=== PATIENT | female | born 1990 | race Caucasian/White ===

== ENCOUNTER 2017-07-30 13:09 | Outpatient (CLI) | payer OTHER ==
[~2017-07-30] VITALS: Ht 152.4 cm; Wt 93.2 kg
[2017-07-30] MEDS ORDERED: PNV91TAB6 PO (13:34)
[2017-07-30] MEDS ORDERED: FER325 PO (13:34)
[2017-07-30 13:35] VITALS: BP 116/69; PULSE 120; RESP 18; Ht 152.4 cm; Wt 93.2 kg
--- NOTE | 2017-07-30 14:41 | RADRPT ---
PROCEDURE: Obstetrical ultrasound for biophysical profile CLINICAL INDICATION: Biophysical profile. . TECHNIQUE: Obstetrical ultrasound of the uterus for biophysical profile. Transabdominal views are obtained. COMPARISON: 03/31/2017 FINDINGS: Single intrauterine gestation. Presentation: Cephalic. Placenta: Anterior. No evidence of placental abruption. No evidence of placenta previa. breathing movement = 2/2 tone = 2/2 motion = 2/2 AUTUMN = 2/2 AUTUMN = 10.1 cm heart rate: 161 beats per minute IMPRESSION: Single intrauterine gestation. Biophysical profile 04/07 RPTAT: AADD .Ildefonso Yañez MD, MD Date Time Electronically viewed and signed by .Ildefonso Yañez MD, on 07/30/2017 14:40 .B/
--- NOTE | 2017-07-30 15:37 | TRIAGE ---
OB Triage Datetime Report Generated by CPN: 07/30/2017 15:36 Datetime: 07/30/2017 14:30 Stage of : OB Triage Maternal Assessment Level of Consciousness: Fully Conscious Labor Evaluation Frequency: 2UC/HR Monitor Mode: External Duration (sec)2399: 90-140 Quality: Mild Resting Tone [place]: Relaxed Heart Rate FHR Baseline Rate: 135 Monitor Mode: External US Variability: Moderate 6-25 bpm Accelerations: 15X15 Decelerations: None Category: Category I Pain Assessment Pain Scale: 0 Pain Goal: 3 Vaginal Exam Membrane Status: Intact Vaginal Bleeding: None Datetime: 07/30/2017 13:32 Assessment Type: Triage Maternal Assessment Level of Consciousness: Fully Conscious DTR's/Clonus: DTRs 2+; No Clonus Headache: Denies Blurred Vision: No Respiratory Effort: Unlabored; Regular Rhythm; Equal Expansion Breath Sounds, Left: Clear and Equal Breath Sounds, Right: Clear and Equal Nausea/Vomiting: Denies RUQ Epigastric Pain: Denies Lower Extremities Edema: None Degree: None Upper Extremities Edema: None Degree: None Facial Edema: None Fall Risk Assessment History of Falling: (0) No Secondary Diagnosis: (0) No Ambulatory Aid: (0) Bedrest/Nurse Assist IV Therapy: (0) No Gait: (0) Normal/Bedrest/Immobile Mental Status: (0) Oriented to Own Ability Fall Score: 0 Fall Risk Score Definition: No Risk: No action required Datetime: 07/30/2017 13:30 Time of Arrival: 07/30/2017 13:03 EGA: 37.4 Arrived By: Ambulatory Arrived From: Home Chief Complaint: PT SENT FROM OFFICE FOR C/O DFM Movement: Decreased Contractions: Denies/Absent Rupture of Membranes: Denies Vaginal Bleeding: None Vaginal Discharge: Denies Recent Sexual Intercouse: Denies Abdominal Trauma: Not Applicable Patient Complaints: None Time Provider Notified: 07/30/2017 14:44 Provider Notified: ABUSLEME Initial Plan: NST/BPP Datetime: 07/30/2017 13:29 Monitor Mode: External Monitor Mode: External US
--- NOTE | 2017-07-30 19:46 | CONS ---
Date/Time of Note Date/Time of Note DATE: 07/30/17 TIME: 19:40 Consultation Date/Type/Reason Admit Date/Time July 30, 2017 OB triage consult This patient is a 26 years old 2 para 1 living 1 who delivered spontaneous vaginal estimated date of confinement is August 16, 2017 which makes her 37 weeks and 4 days today. She came to the triage due to decreased movement. On examination she is a well-developed well-nourished lady near-term her body weight was 93.2 pounds. Her general vital signs appears to be within normal limits with the blood pressure of 116/69, pulse rate of 120, respiration 18, temperature 98.4, and the oxygen saturation at room temperature was 98. Constitutional: No chills, No diaphoresis, No disoriented, No febrile, No improved, No no complaints, No other, No poor po, No requiring IVF, No requiring O2 Eyes: No discharge, No no complaints, No other, No pain, No redness, No visual change ENT: No bleeding, No congestion, No discharge, No dysphagia, No no complaints, No other, No pain, No sore throat Respiratory: No cough, No no complaints, No other, No pain, No pleuritic pain, No shortness of breath, No sputum, No wheezing Cardiovascular: No chest pain, No edema, No lightheadedness, No no complaints, No orthopenea, No other, No palpitations, No paroxysmal nocturnal dyspnea Gastrointestinal: No blood, No constipation, No decreased appetite, No diarrhea , No flatus, No nausea, No no complaints, No other, No pain, No passing stool, No vomiting Genitourinary: other (Due to lack of any contractions pelvic examination was not performed), No bleeding, No discharge, No dysuria, No flank pain, No hematuria, No no complaints Musculoskeletal: No back pain, No bone/joint pain, No neck pain, No no complaints, No other, No restricted range of motion, No swelling Skin: No bruising, No erythema, No laceration, No no complaints, No other, No pruritis, No rash, No skin lesions Neurologic: other (Knee-jerk reflex was normal), No confusion, No dizziness, No focal-weakness, No headache, No no complaints , No seizure, No syncope Endocrine: No dry skin, No no complaints, No other, No polydypsia, No polyuria , No temp intolerance Additional Comments Her nonstress test was reactive with fairly good variability occasional acceleration no sign of decelerations On ultrasound study report was single live intrauterine gestation in cephalic presentation with the placenta anterior with no evidence of abruption or previa her biophysical was reported 04/07 and the AUTUMN was 10.1 cm Recommendation to do a kick count and to be followed in 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
== END 2017-07-30 15:47 | disposition home or self-care (01) ==
LOC: OBT 13:09 → L-D 13:09 → OBT 15:47
PROVIDERS: ATTEND Obstetrics & Gynecology
DX: O36.8130 Decreased fetal movements, third trimester, not applicable or unspecified (principal); Z3A.37 37 weeks gestation of pregnancy
CPT/HCPCS: 76818; Z7500; G0463

== ENCOUNTER 2017-08-08 19:39 | Outpatient (CLI) | payer OTHER ==
[~2017-08-08] VITALS: Ht 154.9 cm; Wt 94.4 kg
[~2017-08-08 19:39] MED LIST: FER325 PO; PNV91TAB6 PO
[2017-08-08 20:18] VITALS: BP 127/72; PULSE 102; RESP 18; Ht 154.9 cm; Wt 94.4 kg
[2017-08-08 20:37] LABS: ADD UMIC YES; UR ASCORBIC ACID 40 mg/dL (NEGATIVE); UR BACTERIA FEW /HPF (NONE SEEN); UR BILIRUBIN (Dip) NEGATIVE (NEGATIVE); UR BLOOD (Dip) NEGATIVE (NEGATIVE); UR CLARITY SLIGHTLY CLOUDY (CLEAR); UR COLOR YELLOW (YELLOW); UR GLUCOSE (Dip) NEGATIVE (NEGATIVE); UR KETONES (Dip) NEGATIVE (NEGATIVE); UR LEUKOCYTE ESTERASE (Dip) NEGATIVE Leu/ul (NEGATIVE); UR MUCUS FEW /HPF (NONE SEEN); UR NITRITE (Dip) NEGATIVE (NEGATIVE); UR RBC 1 /HPF (0-5); UR SPECIFIC GRAVITY (Dip) 1.028 (1.003-1.030); UR SQUAMOUS EPITHELIAL CELL FEW /HPF (FEW); UR TOTAL PROTEIN (Dip) 1+ mg/dl (NEGATIVE); UR UROBILINOGEN (Dip) 1+ mg/dL (NEGATIVE)
--- NOTE | 2017-08-08 22:44 | RADRPT ---
PROCEDURE: Biophysical profile. CLINICAL INDICATION: Pelvic pain. TECHNIQUE: Multiple sonographic images of the pelvis were obtained with transabdominal technique. COMPARISON: 07/30/2017. FINDINGS: There is a single living intrauterine gestation with the fetus in a vertex position. The placenta i s anterior and right lateral in location grade 1 to 2. heart tones of 144 beats per minute are identified. There is normal amniotic fluid volume with an AUTUMN of 9.5 cm. breathing movements = 2 Gross body movements = 2 tone = 2 Qualitative AFV = 2 IMPRESSION: Biophysical profile 8 out of 8. .Michael James MD, MD Date Time Electronically viewed and signed by .Michael James MD, MD on 08/08/2017 22:44 .T/
--- NOTE | 2017-08-09 05:00 | TRIAGE ---
OB Triage Datetime Report Generated by CPN: 08/09/2017 05:00 Datetime: 08/08/2017 20:25 Stage of : OB Triage Datetime: 08/08/2017 20:13 Vaginal Exam Dilatation (cms): 0.0 Effacement (%): 50 Station: -3 Exam By: Starr Hernandez, RN Vaginal Bleeding: None Cervix, Consistency: Firm Cervix, Position: Posterior Datetime: 08/08/2017 20:10 Pool: Negative Nitrazine: Negative Datetime: 08/08/2017 19:58 Assessment Type: Triage Maternal Assessment Level of Consciousness: Fully Conscious DTR's/Clonus: DTRs 2+; No Clonus Headache: Denies Blurred Vision: No Respiratory Effort: Unlabored; Regular Rhythm; Equal Expansion Breath Sounds, Left: Clear and Equal Breath Sounds, Right: Clear and Equal Nausea/Vomiting: Denies RUQ Epigastric Pain: Denies Lower Extremities Edema: None Degree: None Upper Extremities Edema: None Degree: None Facial Edema: None Fall Risk Assessment History of Falling: (0) No Secondary Diagnosis: (0) No Ambulatory Aid: (0) Bedrest/Nurse Assist IV Therapy: (0) No Gait: (0) Normal/Bedrest/Immobile Mental Status: (0) Oriented to Own Ability Fall Score: 0 Fall Risk Score Definition: No Risk: No action required Datetime: 08/08/2017 19:42 Time of Arrival: 08/08/2017 19:35 EGA: 38.6 Arrived By: Ambulatory Arrived From: Home Chief Complaint: LOF since 1800 (Annotations: Data stored by CPN on behalf of user) Movement: Present Contractions: Denies/Absent Rupture of Membranes: Unsure Vaginal Bleeding: None Vaginal Discharge: Denies Recent Sexual Intercouse: Denies Abdominal Trauma: Not Applicable Patient Complaints: Other Time Provider Notified: 08/08/2017 20:25 Provider Notified: Dr Mcclellan Initial Plan: EFM X2, Sterile spec, nitrazine, ROM+, BPP/AUTUMN Datetime: 07/30/2017 13:32 Fall Score: 0 Fall Risk Score Definition: No Risk: No action required Datetime: 07/30/2017 13:30 EGA: 37.4
--- NOTE | 2017-08-17 11:16 | PN ---
Triage Information Date/Time Reason for visit: SROM Weeks of Gestation Patient is 2 para 1 at 38 weeks and 6 days of gestation with estimated date of delivery September 16, 2017 who presented with rule out rupture of membrane no vaginal bleeding, no contractions, positive movement /Para Diabetes: none Hypertention: none Additional information VE : closed Objective Heart Rate: 140's Heart Rate Comments heart rate tracing category 1 Contractions: None Results/Medications Imaging Results PROCEDURE: Biophysical profile. CLINICAL INDICATION: Pelvic pain. TECHNIQUE: Multiple sonographic images of the pelvis were obtained with transabdominal technique. COMPARISON: 07/30/2017. FINDINGS: There is a single living intrauterine gestation with the fetus in a vertex position. The placenta is anterior and right lateral in location grade 1 to 2. heart tones of 144 beats per minute are identified. There is normal amniotic fluid volume with an AUTUMN of 9.5 cm. breathing movements = 2 Gross body movements = 2 tone = 2 Qualitative AFV = 2 IMPRESSION: Biophysical profile 8 out of 8. .Michael James MD, MD Date Time Electronically viewed and signed by .Michael James MD, MD on 08/08/2017 22:44 .T/ CC: CATHY MONDRAGON MD Disposition: Discharge Assessment/Plan Patient was discharged home kick counts were reviewed with the patient She was instructed to follow-up with her own PROOFREADER in 2 days RIANNA MONCADA MD Aug 17, 2017 11:16
== END 2017-08-08 23:14 | disposition home or self-care (01) ==
LOC: OBT 19:39 → L-D 19:40 → OBT 23:14
PROVIDERS: ATTEND Obstetrics & Gynecology
DX: O42.92 Full-term premature rupture of membranes, unspecified as to length of time between rupture and onset of labor (principal); Z3A.38 38 weeks gestation of pregnancy
CPT/HCPCS: 76818; 81001; 84112; Z7500; G0463

== ENCOUNTER 2017-08-16 06:58 | Inpatient (IN) | payer OTHER ==
--- NOTE | 2017-08-08 23:36 | PN ---
Triage Information Date/Time Reason for visit: Rule out rupture of membranes Weeks of Gestation Patient is a 26-year-old 2 para 1 at 38 weeks and 6 days of gestation with estimated date of delivery September 16, 2017 She presents with chief complaint of leaking fluid, no contractions , no vaginal bleeding , positive movement /Para 2 para 1 Diabetes: none Hypertention: none Objective Heart Rate: 140's Heart Rate Comments heart rate tracing category 1 Contractions: None Results/Medications Results 24 hrs rupture of membranes negative Imaging Results PROCEDURE: Biophysical profile. CLINICAL INDICATION: Pelvic pain. TECHNIQUE: Multiple sonographic images of the pelvis were obtained with transabdominal technique. COMPARISON: 07/30/2017. FINDINGS: There is a single living intrauterine gestation with the fetus in a vertex position. The placenta is anterior and right lateral in location grade 1 to 2. heart tones of 144 beats per minute are identified. There is normal amniotic fluid volume with an AUTUMN of 9.5 cm. breathing movements = 2 Gross body movements = 2 tone = 2 Qualitative AFV = 2 IMPRESSION: Biophysical profile 8 out of 8. .Michael James MD, Date Time Electronically viewed and signed by .Michael James MD, MD on 08/08/2017 22:44 .T/ CC: CATHY MONDRAGON MD Disposition: Discharge Assessment/Plan Biophysical profile 8 out of 8 rupture of membranes negative Patient was discharged home Patient was given kick count instructions Patient was instructed to follow-up with her own ENVIRONMENTAL SERVICES SPECIALIST in 2-3 days RIANNA MONCADA MD Aug 08, 2017 23:36
[~2017-08-16] VITALS: Ht 152.4 cm; Wt 94.9 kg
[2017-08-16 07:06] VITALS: Ht 152.4 cm; Wt 94.9 kg
[2017-08-16 07:11] VITALS: BP 120/58; PULSE 90; RESP 19
--- NOTE | 2017-08-16 07:53 | TRIAGE ---
OB Triage Datetime Report Generated by CPN: 08/16/2017 07:53 Datetime: 08/16/2017 07:52 Stage of : OB Triage Maternal Assessment Level of Consciousness: Fully Conscious DTR's/Clonus: DTRs 1+ Headache: Denies Breath Sounds, Left: Clear and Equal Breath Sounds, Right: Clear and Equal Nausea/Vomiting: Denies RUQ Epigastric Pain: Denies Labor Evaluation Frequency: 2-4 Monitor Mode: External Duration (sec)2399: 40-60 Quality: Mild Pattern: Normal: <= 5 Contractions in 10 Minutes Resting Tone [place]: Relaxed Heart Rate FHR Baseline Rate: 140 Monitor Mode: External US Variability: Moderate 6-25 bpm Accelerations: 15X15 Decelerations: None Category: Category I Pain Assessment Pain Scale: 0 Pain Presence: None/Denies Pain Type: N/A Pain Goal: 3 Membrane Status: Intact Datetime: 08/16/2017 07:25 Maternal Assessment Level of Consciousness: Fully Conscious DTR's/Clonus: DTRs 1+ Headache: Denies Blurred Vision: No Respiratory Effort: Unlabored Breath Sounds, Left: Clear and Equal Breath Sounds, Right: Clear and Equal Nausea/Vomiting: Denies RUQ Epigastric Pain: Denies Facial Edema: None Labor Evaluation Frequency: 2-4 Monitor Mode: External Duration (sec)2399: 40-60 Quality: Mild Pattern: Normal: <= 5 Contractions in 10 Minutes Resting Tone [place]: Relaxed Heart Rate FHR Baseline Rate: 140 Monitor Mode: External US Variability: Moderate 6-25 bpm Accelerations: 15X15 Decelerations: None Category: Category I Pain Assessment Pain Scale: 0 Pain Presence: None/Denies Pain Type: N/A Pain Goal: 3 Membrane Status: Intact Datetime: 08/16/2017 07:08 Time of Arrival: 08/16/2017 06:50 EGA: 40.0 Arrived By: Ambulatory Arrived From: Home Chief Complaint: CAME IN FOR IOL, NOT IN SCHEDULE Movement: Present Rupture of Membranes: Denies Vaginal Discharge: Denies Provider Notified: ABUSELEME/FOROOHAR Initial Plan: MONITOR AND VE Vaginal Exam Dilatation (cms): 2.5 Effacement (%): 80 Station: -4 Exam By: MARIO ALBERTO SIMMONS Vaginal Bleeding: None Cervix, Consistency: Soft Cervix, Position: Midposition Presentation 'A': Unable to Assess Datetime: 08/08/2017 22:00 Stage of : OB Triage Labor Evaluation Frequency: Occasional Monitor Mode: External Duration (sec)2399: 40-50 Quality: Mild Pattern: Normal: <= 5 Contractions in 10 Minutes Resting Tone [place]: Relaxed Heart Rate FHR Baseline Rate: 135 Monitor Mode: External US FHR Baseline Changes: No Baseline Change Variability: Moderate 6-25 bpm Accelerations: 15X15 Decelerations: None Category: Category I Datetime: 08/08/2017 21:00 Stage of : OB Triage Labor Evaluation Frequency: Occasional Monitor Mode: External Duration (sec)2399: 40-50 Quality: Mild Pattern: Normal: <= 5 Contractions in 10 Minutes Resting Tone [place]: Relaxed Contraction Comments: Pt denies UC's Heart Rate FHR Baseline Rate: 140 Monitor Mode: External US FHR Baseline Changes: No Baseline Change Variability: Moderate 6-25 bpm Accelerations: 15X15 Decelerations: None Category: Category I Datetime: 08/08/2017 19:58 Fall Risk Assessment Fall Score: 0 Fall Risk Score Definition: No Risk: No action required Datetime: 08/08/2017 19:42 EGA: 38.6 Datetime: 07/30/2017 13:32 Fall Risk Assessment Fall Score: 0 Fall Risk Score Definition: No Risk: No action required Datetime: 07/30/2017 13:30 EGA: 37.4
[2017-08-16] MEDS ORDERED: CARBOPROST 250 MCG INJ IM PRN (08:00)
[2017-08-16] MEDS ORDERED: AMPICILLIN 2 GM/NS (PMX) 100 ML IV ONE (08:00)
[2017-08-16] MEDS ORDERED: METHYLERGONOVINE 0.2 MG INJ IM PRN (08:00)
[2017-08-16] MEDS ORDERED: MISOPROSTOL 200 MCG TAB PR PRN (08:00)
[2017-08-16] MEDS ORDERED: LIDOCAINE 1% (MPF) 30 ML INJ INJ PRN (08:00)
[2017-08-16] MEDS ORDERED: HYDROCODONE/APAP (5/325) TAB PO PRN (08:00)
[2017-08-16] MEDS ORDERED: OXYTOCIN 30 UNITS/LR 500 ML IV PRN (08:00)
[2017-08-16] MEDS ORDERED: OXYTOCIN 30 UNITS/LR 500 ML IV SCH ×2 (08:00)
--- NOTE | 2017-08-16 08:06 | TRIAGE ---
OB Triage Datetime Report Generated by CPN: 08/16/2017 08:06 Datetime: 08/16/2017 07:08 Time Provider Notified: 08/16/2017 07:26
[2017-08-16] MEDS: LACTATED RINGER'S 1,000 ML IV SCH ×3 (08:53→22:15)
--- NOTE | 2017-08-16 08:56 | RADRPT ---
PROCEDURE: Obstetrical ultrasound. CLINICAL INDICATION: , evaluation. Pelvic pain. TECHNIQUE: Transabdominal sonographic images of the uterus obtained after first trimester , greater than 14 weeks gestation. Single intrauterine gestation present. COMPARISON: US PELVIS 08/08/2017 FINDINGS: Single intrauterine gestation. There is a cephalic presentation. Measurements were made in order to determine age. The results are as follows: BPD = 37 weeks 3 day(s) HC = 38 weeks 2 day(s) AC = 40 weeks 3 day(s) FL = 38 weeks 0 day(s) AUTUMN = not measured Heart rate = 126 beats per minute The placenta is anterior - left lateral.. There is no evidence for an abruption or placenta previa. Ovaries are not visualized. IMPRESSION: Single intrauterine gestation of approximately 38 weeks 4 days by ultrasound criteria. [place] estimated weight = 3742 g; 60 percentile for gestational age of 40 weeks 0 days. RPTAT: AADD .Ildefonso Yañez MD, MD Date Time Electronically viewed and signed by .Ildefonso Yañez MD, on 08/16/2017 08:56 .B/
[2017-08-16 08:59] LABS: BASOPHILS % 0.2 % (0.0-2.0); EOSINOPHILS # 0.2 10^3/ul (0.0-0.5); EOSINOPHILS % 1.1 % (0.0-7.0); HEMATOCRIT 33.7 % (37.0-47.0); HEMOGLOBIN 10.7 g/dl (12.0-16.0); LYMPHOCYTES # 3.4 10^3/ul (0.8-2.9); LYMPHOCYTES % 21.2 % (15.0-51.0); MEAN CORPUSCULAR HEMOGLOBIN 26.1 pg (29.0-33.0); MEAN CORPUSCULAR HGB CONC 31.8 g/dl (32.0-37.0); MEAN CORPUSCULAR VOLUME 82.2 fl (82.0-101.0); MEAN PLATELET VOLUME 10.7 fl (7.4-10.4); MONOCYTE # 0.6 10^3/ul (0.3-0.9); MONOCYTES % 3.6 % (0.0-11.0); NEUTROPHIL # 11.9 10^3/ul (1.6-7.5); NEUTROPHILS % 73.3 % (39.0-77.0); PLATELET COUNT 318 10^3/UL (140-415); RED CELL DISTRIBUTION WIDTH 14.6 % (11.5-14.5); WHITE BLOOD COUNT 16.2 10^3/ul (4.8-10.8)
[2017-08-16] MEDS ORDERED: BUTORPHANOL 2 MG INJ IV PRN (09:00)
[2017-08-16] MEDS ORDERED: IBUPROFEN 600 MG TAB PO PRN (09:00)
[2017-08-16 09:36] LABS: INR 0.88; PT RATIO 0.9
[2017-08-16 09:37] LABS: PARTIAL THROMBOPLASTIN TIME 32.5 Sec (25.0-35.0)
[2017-08-16] MEDS: AMPICILLIN 1 GM/NS (PMX) 50 ML IV SCH ×3 (12:35→20:47)
--- NOTE | 2017-08-16 21:43 | HP ---
Date/Time of Note Date/Time of Note DATE: 08/16/17 TIME: 21:35 OB - History Hx of Present Last Menstrual Period: Nov 12, 2016 Estimated Due Date: Aug 16, 2017 : 2 Para: 1 Care: Good Care Ultrasounds: Normal mid trimester US Obstetrical Complications: None Medical Complications: None Past Family/Social History * Past Medical, Surgical, Family and Obstetric Histories reviewed from chart. Blood Type: A+ Rubella: immune RPR/VDRL: Negative GBS Status: Positive HBsAG: Negative OB Admission Exam Vital Signs Vital Signs Vital Signs Date Time Temp Pulse Resp B/P Pulse Ox O2 Delivery O2 Flow Rate FiO2 08/16/17 07:11 98.8 90 19 120/58 99 Room Air Physical Exam HEENT: WNL Heart: Rhythm Normal Lungs: Clear, Equal Abdomen: WNL Extremities: Normal Reflexes: Normal Cervical Dilatation: 3cm Effacement: 75% Station: Ballotable Membranes: Intact Heart Rate: 130's Accelerations: Accelerations Present Varibility: Moderate Contractions on Admission: 6-10 Minutes Apart Intensity: Mild Last 72 hours Lab Results CBC & BMP 08/16/17 08:00 OB Assessment/Plan Plan: Expectant Management TREVOR WILSON MD Aug 16, 2017 21:43
[2017-08-17] MEDS: AMPICILLIN 1 GM/NS (PMX) 50 ML IV SCH ×6 (00:32→20:01)
[2017-08-17] MEDS: OXYTOCIN 30 UNITS/LR 500 ML IV SCH ×2 (04:19→04:51)
[2017-08-17] MEDS: LACTATED RINGER'S 1,000 ML IV SCH ×2 (10:14→12:15)
[2017-08-17] MEDS ORDERED: FENTAnyl 2MCG/ML-ROPIV 0.2% 100 ML ONE (11:49)
[2017-08-17] MEDS ORDERED: ONDANSETRON 4 MG INJ ONE (12:23)
[2017-08-17] MEDS ORDERED: ONDANSETRON 4 MG INJ IV STA (12:44)
[2017-08-17] MEDS ORDERED: FENTAnyl 2MCG/ML-ROPIV 0.2% 100 ML BAG EPI SCH (13:00)
[2017-08-17] MEDS ORDERED: NALOXONE (0.4 MG/ML) INJ IV PRN (13:00)
[2017-08-17] MEDS ORDERED: DIPHENHYDRAMINE 50 MG INJ IV PRN (13:00)
[2017-08-17] MEDS ORDERED: ONDANSETRON 4 MG INJ IV PRN ×2 (13:00→22:30)
[2017-08-17] MEDS ORDERED: OXYTOCIN 30 UNITS/LR 500 ML IV SCH (22:18)
--- NOTE | 2017-08-17 22:28 | LDN ---
Date/Time of Note Date/Time of Note DATE: 08/17/17 TIME: 22:25 Delivery Summary 26 years old female 2 para 1 Admitted for induction at 40 weeks of Prolonged labor Spontaneous vaginal delivery baby girl Apgars 9 NICU team present Perineal abrasion sutured under epidural anesthesia No complications Weeks of Gestation 40 Placenta Delivered: Spontaneously Meconium: none Episiotomy: No Laceration repair: PERINEAL ABRASSION Anesthesia type: Epidural Estimated blood loss: 200 Sponge & Needle done & correct: Yes All needle counts correct: Yes Any foreign bodies felt in the: No Problems: Delivery Information Sex Sex: female Apgars 1 Minute: 9 5 Minute: 9 Suctioning Nose & mouth suctioned at rodolfo: Yes Umbilical Cord Umbilical cord with: 3 Vessels Cord presentations: no nuchal cord Cord Blood was obtained: Yes Mother & Baby Disposition Disposition Mom & Baby to Maternity; Good: Yes TREVOR WILSON MD Aug 17, 2017 22:28
[2017-08-17] MEDS ORDERED: METHYLERGONOVINE 0.2 MG INJ IM PRN (22:30)
[2017-08-17] MEDS ORDERED: BENZOCAINE 20% 56 ML SPRAY TOP PRN (22:30)
[2017-08-17] MEDS ORDERED: LANOLIN 7 GM TUBE TOP PRN (22:30)
[2017-08-17] MEDS ORDERED: DIPHENHYDRAMINE 25 MG CAP PO PRN (22:30)
[2017-08-17] MEDS ORDERED: OXYTOCIN 30 UNITS/LR 500 ML IV PRN (22:30)
[2017-08-17] MEDS ORDERED: HYDROCODONE/APAP (5/325) TAB PO PRN (22:30)
[2017-08-17] MEDS ORDERED: DIBUCAINE 1% 30 GM OINT PR PRN (22:30)
[2017-08-17] MEDS ORDERED: CARBOPROST 250 MCG INJ IM PRN (22:30)
[2017-08-17] MEDS ORDERED: MISOPROSTOL 200 MCG TAB PR PRN (22:30)
[2017-08-17] MEDS ORDERED: ACETAMINOPHEN 325 MG TAB PO PRN ×2 (22:30)
[2017-08-18] MEDS ORDERED: IBUPROFEN 800 MG TAB PO SCH
[2017-08-18 00:35] VITALS: BP 132/64; PULSE 89; RESP 18
[2017-08-18] MEDS: IBUPROFEN 800 MG TAB PO SCH ×4 (01:53→17:25)
[2017-08-18] MEDS: HYDROCODONE/APAP (5/325) TAB PO PRN (02:49)
[2017-08-18 04:00] VITALS: BP 104/57; PULSE 82; RESP 18
[2017-08-18 08:00] VITALS: BP 112/64; PULSE 70; RESP 18
[2017-08-18] MEDS: SENNA/DOCUSATE NA (8.6MG/50MG) TAB PO SCH ×2 (09:49→21:24)
[2017-08-18 10:31] LABS: BASOPHIL # 0.1 10^3/ul (0.0-0.1); BASOPHILS % 0.3 % (0.0-2.0); EOSINOPHILS # 0.1 10^3/ul (0.0-0.5); EOSINOPHILS % 0.3 % (0.0-7.0); HEMATOCRIT 29.1 % (37.0-47.0); HEMOGLOBIN 9.5 g/dl (12.0-16.0); LYMPHOCYTES # 3.3 10^3/ul (0.8-2.9); LYMPHOCYTES % 16.6 % (15.0-51.0); MEAN CORPUSCULAR HEMOGLOBIN 26.3 pg (29.0-33.0); MEAN CORPUSCULAR HGB CONC 32.6 g/dl (32.0-37.0); MEAN CORPUSCULAR VOLUME 80.6 fl (82.0-101.0); MEAN PLATELET VOLUME 10.3 fl (7.4-10.4); MONOCYTE # 0.6 10^3/ul (0.3-0.9); NEUTROPHIL # 15.7 10^3/ul (1.6-7.5); NEUTROPHILS % 79.2 % (39.0-77.0); PLATELET COUNT 272 10^3/UL (140-415); RED BLOOD COUNT 3.61 10^6/ul (4.20-5.40); RED CELL DISTRIBUTION WIDTH 14.7 % (11.5-14.5); WHITE BLOOD COUNT 19.8 10^3/ul (4.8-10.8)
[2017-08-18 12:05] VITALS: BP 118/68; PULSE 76
--- NOTE | 2017-08-18 13:48 | PN ---
Date/Time of Note Date/Time of Note DATE: 08/18/17 TIME: 13:44 Assessment/Plan VTE Prophylaxis VTE Prophylaxis Intervention: anti-embolic stocking Lines/Catheters IV Catheter Type (from Nrsg): Peripheral IV Subjective 24 Hr Interval Summary Free Text/Dictation day 1 doing well no complaints afebrile uterus contracted lochia normal Constitutional: improved, no complaints Eyes: no complaints ENT: no complaints Respiratory: no complaints Cardiovascular: no complaints Gastrointestinal: no complaints Genitourinary: no complaints Musculoskeletal: no complaints Skin: no complaints Neurologic: no complaints Endocrine: no complaints Lymphatic: no complaints Psychological: nl mood/affect, no complaints Immunologic: no complaints Exam/Review of Systems Vital Signs Vitals Vital Signs Date Time Temp Pulse Resp B/P Pulse Ox O2 Delivery O2 Flow Rate FiO2 08/18/17 12:05 98.0 76 118/68 Room Air 08/18/17 08:00 18 08/16/17 07:11 99 Intake and Output 08/17/17 08/17/17 08/18/17 15:00 23:00 07:00 Intake Total 1516 ml 1770 ml 50 ml Output Total 300 ml 256 ml 1302 ml Balance 1216 ml 1514 ml -1252 ml Results Result Diagram: 08/18/17 1013 Results 24 hrs Laboratory Tests Test 08/18/17 10:13 White Blood Count 19.8 #H Red Blood Count 3.61 L Hemoglobin 9.5 L Hematocrit 29.1 L Mean Corpuscular Volume 80.6 L Mean Corpuscular Hemoglobin 26.3 L Mean Corpuscular Hemoglobin Concent 32.6 Red Cell Distribution Width 14.7 H Platelet Count 272 Mean Platelet Volume 10.3 Neutrophils % 79.2 H Lymphocytes % 16.6 Monocytes % 3.0 Eosinophils % 0.3 Basophils % 0.3 Nucleated Red Blood Cells % 0.0 Neutrophils # 15.7 H Lymphocytes # 3.3 H Monocytes # 0.6 Eosinophils # 0.1 Basophils # 0.1 Nucleated Red Blood Cells # 0.0 Medications Medications Current Medications Acetaminophen (Tylenol Tab) 650 mg Q4H PRN PO PAIN LEVEL 1-5; Start 08/17/17 at 22:30 Acetaminophen/ Hydrocodone Bitart ([place] (5/325)) 1 tab Q4H PRN PO PAIN LEVEL 1 -5; Start 08/17/17 at 22:30 Acetaminophen/ Hydrocodone Bitart ([place] (5/325)) 2 tab Q4H PRN PO PAIN LEVEL 6 -10 Last administered on 08/18/17 02:49; Admin Dose 2 TAB; Start 08/17/17 at 22:30 Ondansetron HCl (Zofran Inj) 4 mg Q6H PRN IV NAUSEA AND/OR VOMITING; Start at 22:30 Diphenhydramine HCl (Benadryl) 25 mg Q6H PRN PO PRURITUS; Start 08/17/17 at 22 :30 Senna/Docusate Sodium (Senokot-S) 1 tab BID PO Last administered on 08/18/17 09:49; Admin Dose 1 TAB; Start 08/18/17 at 09:00 Measles/Mumps/ Rubella Vaccine Live (Mmr Ii Vaccine) 0.5 ml ONCE ONCE SC* ; Start 08/19/17 at 09:00; Stop 08/19/17 at 09:01 Diphtheria/ Tetanus/Acell Pertussis (Adacel) 0.5 ml ONCE ONCE IM* ; Start 08/19 at 09:00; Stop 08/19/17 at 09:01 Varicella Virus Vaccine Live (Varivax Vaccine With Diluent) 1,350 unit ONCE ONCE SC* ; Start 08/19/17 at 09:00; Stop 08/19/17 at 09:01 Acetaminophen 650 mg 650 mg Q4H PRN PO ELEVATED TEMPERATURE; Start 08/17/17 at 22:30 Oxytocin/Lactated Ringer's 500 ml @ 0 mls/hr ONCE PRN IV For Hemorrhage Management; Start 08/17/17 at 22:30 Methylergonovine Maleate (Methergine) 0.2 mg ONCE PRN IM VAGINAL BLEEDING; Start 08/17/17 at 22:30 Carboprost Tromethamine (Hemabate) 250 mcg ONCE PRN IM VAGINAL BLEEDING; Start 08/17/17 at 22:30 Misoprostol (Cytotec) 1,000 mcg ONCE PRN MA VAGINAL BLEEDING; Start 08/17/17 at 22:30 Ibuprofen (Motrin) 800 mg Q6 PO Last administered on 08/18/17 11:53; Admin Dose 800 MG; Start 08/18/17 at 01:50 Influenza Virus Vaccine (Fluzone) 0.5 ml ONCE ONCE IM* ; Start 08/19/17 at 09: 00; Stop 08/19/17 at 09:01 TREVOR WILSON MD Aug 18, 2017 13:48
[2017-08-18 16:07] VITALS: BP 116/59; PULSE 75; RESP 20
[2017-08-18 19:45] VITALS: BP 108/64; PULSE 84; RESP 18
[2017-08-19] MEDS: IBUPROFEN 800 MG TAB PO SCH ×3 (00:06→11:47)
[2017-08-19 04:20] VITALS: BP 118/61; PULSE 71; RESP 18
[2017-08-19] MEDS: HYDROCODONE/APAP (5/325) TAB PO PRN (04:26)
[2017-08-19 08:15] VITALS: BP 126/62; PULSE 75; RESP 18
[2017-08-19] MEDS ORDERED: VARICELLA VACCINE LIVE/PF 1,350 UNIT/0.5 ML ML SC* ONE (09:00)
[2017-08-19] MEDS ORDERED: INFLUENZA VIRUS VACCINE 0.5 ML (DISPENSING) IM* ONE (09:00)
[2017-08-19] MEDS ORDERED: AL HYDROX/MG HYDROX/SIMETH 30 ML CUP PO PRN (09:00)
[2017-08-19] MEDS ORDERED: MEASLES,MUMPS,RUBELLA VACCINE INJ SC* ONE (09:00)
[2017-08-19] MEDS ORDERED: DIPHTH/TET/ACEL PERTUSS (ADULT) 0.5 ML VIAL IM* ONE (09:00)
[2017-08-19] MEDS: SENNA/DOCUSATE NA (8.6MG/50MG) TAB PO SCH (09:13)
[2017-08-19 10:38] LABS: BASOPHILS % 0.2 % (0.0-2.0); EOSINOPHILS # 0.1 10^3/ul (0.0-0.5); EOSINOPHILS % 0.9 % (0.0-7.0); HEMATOCRIT 27.6 % (37.0-47.0); HEMOGLOBIN 8.9 g/dl (12.0-16.0); LYMPHOCYTES # 2.4 10^3/ul (0.8-2.9); LYMPHOCYTES % 19.5 % (15.0-51.0); MEAN CORPUSCULAR HEMOGLOBIN 26.2 pg (29.0-33.0); MEAN CORPUSCULAR HGB CONC 32.2 g/dl (32.0-37.0); MEAN CORPUSCULAR VOLUME 81.2 fl (82.0-101.0); MEAN PLATELET VOLUME 10.2 fl (7.4-10.4); MONOCYTE # 0.4 10^3/ul (0.3-0.9); MONOCYTES % 2.9 % (0.0-11.0); NEUTROPHIL # 9.3 10^3/ul (1.6-7.5); PLATELET COUNT 265 10^3/UL (140-415); RED CELL DISTRIBUTION WIDTH 14.9 % (11.5-14.5); WHITE BLOOD COUNT 12.2 10^3/ul (4.8-10.8)
--- NOTE | 2017-08-19 11:13 | PD.PPDC ---
TOE SEWER Discharge Instruction Condition Patient Condition: Good Diet Diet: Resume Regular Diet Activity/Restrictions Activity: Normal Activity May Shower Restrictions: No Exercising No Lifting No Driving No Sexual Activity Nothing in the Vagina No [place] No Tampons, douche Follow-up Follow-up with Physician: 6, Week/Weeks Return to clinic for OVEN HEATER Instructions: Fever greater than 101 Chills Worsening abdominal pain Excessive Vaginal Bleeding More than 2 pads per hour Unable to tolerate diet OB Instructions: Breast Tenderness Depression Blurried Vision Headache Surgical Instructions: Incisional Drainage Incisional Redness TREVOR WILSON MD Aug 19, 2017 11:12
--- NOTE | 2017-08-19 11:15 | DS ---
Date/Time of Note Date/Time of Note DATE: 08/19/17 TIME: 11:14 Obstetrical Discharge Record Final Diagnosis Final Diagnosis: Term delivered Vaginal Delivery Obstetrical Delivery: Spontaneous Complications Induction: Yes Condition on Discharge Physical Assessment Voiding: Yes Bowel Movement: Yes Breast: Soft, non-tender, Filling Fundus: Firm Calf Tenderness: No Patient Condition: Good TREVOR WILSON MD Aug 19, 2017 11:15
== END 2017-08-19 16:21 | disposition home or self-care (01) | DRG 775 ==
LOC: OBT 06:58 → L-D 06:59 → OBT 07:56 → PP1 08-18 00:31
PROVIDERS: ADMIT Obstetrics & Gynecology; ATTEND Obstetrics & Gynecology
PROC: 4A1HXCZ Monitoring of Products of Conception, Cardiac Rate, External Approach (ICD-10-PCS; 2017-08-16)
PROC: 10E0XZZ Delivery of Products of Conception, External Approach (ICD-10-PCS; principal; 2017-08-17)
PROC: 0HQ9XZZ Repair Perineum Skin, External Approach (ICD-10-PCS; 2017-08-17)
DX: O99.824 Streptococcus B carrier state complicating childbirth (principal); O48.0 Post-term pregnancy; Z37.0 Single live birth; Z3A.40 40 weeks gestation of pregnancy; O71.89 Other specified obstetric trauma; O63.9 Long labor, unspecified
CPT/HCPCS: 62319; 76815; 85025; 85610; 85730; 86592; 86850; 86900; 86901; 87340; 90686; 90715; 90716; 99464; G0463; J0290; J2405; J2590; J3010; J7120